=== PATIENT | male | born 1965 | race Caucasian/White ===

== ENCOUNTER → 2018-05-07 08:41 | Outpatient (CLI) | payer OTHER, MEDICARE, SELFPAY ==
--- NOTE | 2018-05-07 09:27 | CT_ITS ---
CT abdomen pelvis w con CLINICAL INDICATION: Abdominal pain, nausea vomiting and diarrhea ITS.REASON: ABD,PAIN HX OF GASTRIC BYPASS ORDERING PHYSICIAN: Mita Joy MD PATIENT AGE: 52 years COMPARISON: None TECHNIQUE: Axial images obtained with sagittal and coronal reformats. All CT scans at the facility use one or more dose reduction, viz: automated exposure control, ma/kV adjustment per patient size (including targeted exams where dose is matched to indication, i.e. head), or iterative reconstruction technique. PROCEDURE: Oral Contrast: Redicat IV Contrast: 75 mL's of Isovue-370. FINDINGS: No acute finding in the lung bases. The liver, spleen, adrenal glands, and kidneys have an unremarkable appearance. There has been a prior cholecystectomy. No ductal dilatation. Prior gastric bypass surgery with gastrojejunostomy. 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 The head of the pancreas is somewhat prominent. Nodularity is noted to the left of the uncinate process of the pancreas possibly related to hypertrophy of the uncinate process versus an underlying lymph node measuring 13 mm. No intestinal obstruction or free air. There are few small lymph nodes in the mesentery's and right lower quadrant. No evidence of appendicitis or diverticulitis. No pelvic mass abnormal fluid collection or focal inflammatory changes the pelvis. No acute bony anomalies. IMPRESSION: 1. No acute abdominal or pelvic findings. 2. Prior gastric bypass with gastrojejunostomy. 3. 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 It is uncertain whether this is congenital or perhaps postsurgical. Correlation with patient's surgical history is needed. There is hyperplasia of the head of the pancreas with some nodularity medial to the uncinate process which could be due to hypertrophy or small lymph node at [address] follow-up with IV and oral contrast to confirm stability. There are few small lymph nodes in the mesentery's which is nonspecific.
[2018-05-07 09:44] LABS: Alanine Aminotransferase 68 U/L (12-78); Albumin Level 3.8 gm/dL (3.4-5.0); Alkaline Phosphatase 94 U/L (46-116); Aspartate Amino Transferase 40 U/L (15-37); Bilirubin,Direct 0.1 mg/dL (0.0-0.2); Bilirubin,Indirect 0.2 mg/dL (0.0-0.9); Bilirubin,Total 0.3 mg/dL (0.2-1.0); Blood Urea Nitrogen 15 mg/dL (7-18); Creatinine,Serum 0.86 mg/dL (0.70-1.30); Estimated Glomerular Filt Rate 93 ml/min (>60); GFR (African American) 112 ML/MIN (>60); Lipase 1953 u/L (73-393); Total Protein,Serum 7.8 gm/dL (6.4-8.2)
== END ==
PROVIDERS: PCP Family Medicine; Visit Provider Family Medicine
DX: R10.13 Epigastric pain (principal); K85.90 Acute pancreatitis without necrosis or infection, unspecified
CPT/HCPCS: 36415; 74177; 80076; 82565; 83690; 84520; Q9967

== ENCOUNTER → 2019-05-13 07:23 | Outpatient (CLI) | payer OTHER, MEDICARE, SELFPAY ==
[2019-05-13 09:12] LABS: Basophils % 0.2 % (0.1-2.0); Eosinophils # 0.4 K/mm3 (0.0-0.4); Eosinophils % 4.8 % (0.1-12.0); Hematocrit 38.3 % (42.0-52.0); Hemoglobin 11.7 g/dL (14.1-18.0); Lymphocytes # 2.1 K/mm3 (0.7-4.5); Lymphocytes % 26.5 % (10-50); Mean Corpuscular HGB Conc 30.4 g/dL (31.8-35.4); Mean Corpuscular Hemoglobin 25.7 pg (27.0-31.2); Mean Corpuscular Volume 84.6 fl (80-94); Mean Platelet Volume 8.2 fl (7.4-10.4); Monocytes # 0.5 K/mm3 (0.1-1.0); Monocytes % 6.5 % (1.7-9.3); Platelet Count 273 K/mm3 (142-424); Red Blood Count 4.53 M/mm3 (4.60-6.20); Red Cell Distribution Width 15.4 % (11.5-17.5)
[2019-05-13 09:27] LABS: Hemoglobin A1C 6.7 % (0.0-7.0)
[2019-05-13 09:37] LABS: Alanine Aminotransferase 46 U/L (12-78); Alkaline Phosphatase 87 U/L (46-116); Anion Gap 11.2 mEq/L (5-15); Aspartate Amino Transferase 24 U/L (15-37); Bilirubin,Direct 0.1 mg/dL (0.0-0.2); Bilirubin,Total 0.1 mg/dL (0.2-1.0); Blood Urea Nitrogen 12 mg/dL (7-18); Calcium 8.4 mg/dL (8.5-10.1); Carbon Dioxide 28 mmol/L (21.0-32.0); Chloride 105 mmol/L (98-107); Chol/HDL Ratio 3.2 (1-3.5); Cholesterol 146 mg/dL (140-200); Creatinine,Serum 0.97 mg/dL (0.70-1.30); Estimated Glomerular Filt Rate 80 ml/min (>60); GFR (African American) 97 ML/MIN (>60); Glucose 159 mg/dL (74-106); HDL Cholesterol 46 mg/dL (27-67); LDL Cholesterol 75 mg/dL (0-130); Potassium 4.2 mmoL/L (3.5-5.1); Prostate Specific Ag Screen 0.7 ng/mL (0.0-4.0); Sodium 140 mmol/L (136-145); Thyroid Stimulating Hormone 2.06 uIU/ml (0.358-3.740); Total Protein,Serum 5.9 gm/dL (6.4-8.2); Triglycerides 126 mg/dL (30-200); VLDL Cholesterol 25 mg/dL (0-40)
[2019-05-14 12:21] LABS: Hepatitis B Surf Ab Quant <3.1 mIU/mL (Immunity>9.9); Testosterone,Total 135 ng/dL (264-916); Vitamin B12 533 pg/mL (232-1245); Vitamin D 25 Hydroxy 35.5 ng/mL (30.0-100.0)
== END ==
PROVIDERS: Visit Provider Family Medicine
DX: R53.83 Other fatigue (principal); E11.9 Type 2 diabetes mellitus without complications; E55.9 Vitamin D deficiency, unspecified; Z79.84 Long term (current) use of oral hypoglycemic drugs; N52.9 Male erectile dysfunction, unspecified; Z11.59 Encounter for screening for other viral diseases
CPT/HCPCS: 80048; 80061; 80076; 82607; 82652; 83036; 84403; 84443; 85025; 86706; G0103

== ENCOUNTER → 2019-08-21 12:44 | Outpatient (CLI) | payer OTHER, MEDICARE, SELFPAY ==
--- NOTE | 2019-08-21 12:50 | XR_ITS ---
PROCEDURE: XR FOOT WT BEARING RT 3V CLINICAL INDICATION: pain COMPARISON: No exams were available for comparison FINDINGS: No fracture or dislocation. No lytic or blastic change. There is normal mineralization. The joint spaces are well-preserved. No erosive changes evident. Other findings:Dystrophic calcifications are seen in the soft tissues lateral to the proximal base of the 5th metatarsal and there is some degenerative spurring of 5th metatarsal. 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 Degenerative dorsal posterior and plantar calcaneal spurring is noted. IMPRESSION: Degenerative findings. No acute bone pathology. Dictated by: Fermin Reynolds 08/21/2019 14:08 Electronically signed by Fermin Reynolds in [place] 08/21/2019 14:08
--- NOTE | 2019-08-21 12:50 | XR_ITS ---
PROCEDURE: XR FOOT WT BEARING LT 3V CLINICAL INDICATION: pain COMPARISON: No exams were available for comparison FINDINGS: No fracture or dislocation. No lytic or blastic change. There is normal mineralization. There is mild degenerative joint disease at the Lisfranc joint and 1st metatarsophalangeal joint. Degenerative spurring of the proximal base of the 5th metatarsal is noted. Degenerative dorsal posterior and plantar calcaneal spurring is noted. Other findings:There is some dystrophic calcification in the soft tissues of the plantar fascia. IMPRESSION: Degenerative findings as described. No acute bone pathology. Dictated by: Fermin Reynolds 08/21/2019 14:14 Electronically signed by Fermin Reynolds in [place] 08/21/2019 14:14
== END ==
PROVIDERS: PCP Family Medicine; Visit Provider Podiatrist
DX: M79.672 Pain in left foot (principal); M79.671 Pain in right foot
CPT/HCPCS: 73630

== ENCOUNTER → 2019-11-28 08:17 | Outpatient (CLI) | payer OTHER, MEDICARE, SELFPAY ==
[2019-11-28 08:57] LABS: Basophils % 0.2 % (0.1-2.0); Eosinophils # 0.2 K/mm3 (0.0-0.4); Eosinophils % 2.6 % (0.1-12.0); Hematocrit 40.3 % (42.0-52.0); Hemoglobin 12.9 g/dL (14.1-18.0); Lymphocytes # 1.9 K/mm3 (0.7-4.5); Lymphocytes % 20.3 % (10-50); Mean Corpuscular Hemoglobin 25.1 pg (27.0-31.2); Mean Corpuscular Volume 78.5 fl (80-94); Mean Platelet Volume 6.6 fl (7.4-10.4); Monocytes # 0.5 K/mm3 (0.1-1.0); Monocytes % 5.1 % (1.7-9.3); Neutrophils # 6.7 K/mm3 (1.8-7.8); Neutrophils % 71.7 % (37.0-80.0); Platelet Count 308 K/mm3 (142-424); Red Blood Count 5.14 M/mm3 (4.60-6.20); Red Cell Distribution Width 16.3 % (11.5-17.5); White Blood Count 9.3 K/mm3 (4.8-10.8)
[2019-11-28 10:01] LABS: Alanine Aminotransferase 66 U/L (12-78); Albumin Level 4.6 g/dl (3.5-5.0); Alkaline Phosphatase 96 U/L (38-126); Anion Gap 13.4 mEq/L (5-15); Aspartate Amino Transferase 54 U/L (17-59); Bilirubin,Indirect 0.3 mg/dL (0.0-0.9); Bilirubin,Total 0.3 mg/dl (0.2-1.3); Bilirubin,Unconjugated 0.3 mg/dL (0.0-1.1); Blood Urea Nitrogen 14 mg/dl (9-20); Calcium 9.7 mg/dl (8.4-10.2); Carbon Dioxide 29 mmol/L (22.0-30.0); Chloride 100 mmol/L (98-107); Chol/HDL Ratio 2.7 (1-3.5); Cholesterol 162 mg/dl (140-200); Estimated Glomerular Filt Rate 100 ml/min (>60); GFR (African American) 121 ML/MIN (>60); Glucose 135 mg/dl (74-100); HDL Cholesterol 59 mg/dl (40-60); Potassium 4.4 mmoL/L (3.5-5.1); Sodium 138 mmol/L (136-145); Total Protein,Serum 7.4 g/dl (6.3-8.2); Triglycerides 123 mg/dl (30-150); VLDL Cholesterol 25 mg/dL (0-40)
[2019-11-28 10:12] LABS: Direct LDL Cholesterol 104.03 mg/dL (100-129)
[2019-11-28 19:31] LABS: Thyroid Stimulating Hormone 2.44 uIU/mL (0.465-4.68)
[2019-11-28 19:41] LABS: Hemoglobin A1C 6.3 % (4.0-6.0)
[2019-11-28 20:11] LABS: Prostate Specific Ag Screen 0.9 ng/ml (0.0-4.0)
[2019-11-29 11:13] LABS: Vitamin B12 762 pg/mL (232-1245); Vitamin D 25 Hydroxy 30.5 ng/mL (30.0-100.0)
[2019-12-03 12:05] LABS: Testosterone, Total, LC/MS 212.2 ng/dL (264.0-916.0)
== END ==
PROVIDERS: Visit Provider Family Medicine
DX: R53.83 Other fatigue (principal); E11.9 Type 2 diabetes mellitus without complications; Z79.84 Long term (current) use of oral hypoglycemic drugs; Z12.5 Encounter for screening for malignant neoplasm of prostate; Z13.220 Encounter for screening for lipoid disorders
CPT/HCPCS: 36415; 80048; 80061; 80076; 82607; 82652; 83036; 84403; 84443; 85025; G0103

== ENCOUNTER → 2021-09-07 07:56 | Outpatient (CLI) | payer OTHER, MEDICARE, SELFPAY ==
[2021-09-07 11:39] LABS: Basophils % 0.3 % (0.1-2.0); Eosinophils # 0.3 K/mm3 (0.0-0.4); Eosinophils % 2.5 % (0.1-12.0); Hematocrit 40.1 % (42.0-52.0); Hemoglobin 12.4 g/dL (14.1-18.0); Lymphocytes # 1.7 K/mm3 (0.7-4.5); Mean Corpuscular Hemoglobin 23.8 pg (27.0-31.2); Mean Corpuscular Volume 76.7 fl (80-94); Mean Platelet Volume 7.6 fl (7.4-10.4); Monocytes # 0.6 K/mm3 (0.1-1.0); Monocytes % 5.7 % (1.7-9.3); Neutrophils # 7.6 K/mm3 (1.8-7.8); Neutrophils % 74.5 % (37.0-80.0); Platelet Count 317 K/mm3 (142-424); Red Blood Count 5.23 M/mm3 (4.60-6.20); Red Cell Distribution Width 16.5 % (11.5-17.5); White Blood Count 10.1 K/mm3 (4.8-10.8)
[2021-09-07 12:06] LABS: Alanine Aminotransferase 64 U/L (12-78); Albumin Level 4.4 g/dl (3.5-5.0); Alkaline Phosphatase 106 U/L (38-126); Anion Gap 12.3 mEq/L (5-15); Aspartate Amino Transferase 52 U/L (17-59); Bilirubin,Direct 0.2 mg/dl (0.0-0.4); Bilirubin,Indirect 0.3 mg/dL (0.0-0.9); Bilirubin,Total 0.5 mg/dl (0.2-1.3); Bilirubin,Unconjugated 0.3 mg/dL (0.0-1.1); Blood Urea Nitrogen 13 mg/dl (9-20); Calcium 9.3 mg/dl (8.4-10.2); Carbon Dioxide 29 mmol/L (22.0-30.0); Chloride 100 mmol/L (98-107); Chol/HDL Ratio 3.6 (1-3.5); Cholesterol 170 mg/dl (140-200); Estimated Glomerular Filt Rate 99 ml/min (>60); GFR (African American) 120 ML/MIN (>60); Glucose 119 mg/dl (74-100); HDL Cholesterol 47 mg/dl (40-60); Potassium 4.3 mmoL/L (3.5-5.1); Sodium 137 mmol/L (136-145); Triglycerides 126 mg/dl (30-150); VLDL Cholesterol 25 mg/dL (0-40)
[2021-09-07 12:17] LABS: Direct LDL Cholesterol 91.36 mg/dL (100-129)
[2021-09-07 12:21] LABS: 25-OH Vitamin D, Total 29.4 ng/mL (30-100)
[2021-09-07 12:36] LABS: Thyroid Stimulating Hormone 1.63 uIU/mL (0.465-4.68)
[2021-09-07 12:55] LABS: Vitamin B12 690 pg/mL (239-931)
[2021-09-07 15:46] LABS: Hemoglobin A1C 6.8 % (4.0-6.0)
[2021-09-09 14:14] LABS: Testosterone,Free 6.6 pg/mL (7.2-24.0)
== END ==
PROVIDERS: PCP Family Medicine; Visit Provider Family Medicine
DX: R07.89 Other chest pain (principal); I10 Essential (primary) hypertension; E11.9 Type 2 diabetes mellitus without complications; Z79.84 Long term (current) use of oral hypoglycemic drugs
CPT/HCPCS: 36415; 78452; 80048; 80061; 80076; 82306; 82607; 83036; 84402; 84443; 85025; 93017; A9502

== ENCOUNTER 2021-11-01 06:02 | Emergency (ER) | payer OTHER, MEDICARE, SELFPAY ==
[2021-11-01 06:05] VITALS: BP 159/71; PULSE 76; RESP 18; TEMP 36.4; O2SAT 95; BMI 40.6
[2021-11-01 06:30] VITALS: BP 162/78; PULSE 71; O2SAT 95
--- NOTE | 2021-11-01 06:33 | XR_ITS ---
FINAL REPORT CLINICAL HISTORY: fall COMPARISON: August 21, 2021 FINDINGS: RIGHT FOOT: Three views of the right foot were obtained. There is no acute fracture or dislocation. There is mild degenerative change. There is chronic calcification adjacent to the proximal 5th metatarsal. IMPRESSION: No acute bony abnormality. Reviewed, Interpreted and Dictated by Greg Cleveland III, MD Transcribed by Naseem Osorio Authenticated by Greg Cleveland III, MD on 11/01/2021 08:42:22 AM [facility]
--- NOTE | 2021-11-01 06:33 | XR_ITS ---
FINAL REPORT CLINICAL HISTORY: fall FINDINGS: Three views of the right ankle were obtained. There is no acute fracture or dislocation. There is mild degenerative change. There is soft tissue swelling. There are calcifications inferior to the medial and lateral malleoli, favor chronic. There are calcaneal spurs. IMPRESSION: Swelling with no acute bony abnormality. Reviewed, Interpreted and Dictated by Greg Cleveland III, MD Transcribed by Naseem Osorio Authenticated by Greg Cleveland III, MD on 11/01/2021 08:42:22 AM [facility]
--- NOTE | 2021-11-01 06:33 | XR_ITS ---
FINAL REPORT CLINICAL HISTORY: fall FINDINGS: Two views of the right tibia-fibula demonstrate no acute fracture or dislocation. There are postoperative changes from knee arthroplasty. There is soft tissue calcification adjacent to the knee. There are calcaneal spurs. IMPRESSION: No acute process. Reviewed, Interpreted and Dictated by Greg Cleveland III, MD Transcribed by Naseem Osorio Authenticated by Greg Cleveland III, MD on 11/01/2021 08:20:06 AM [facility]
--- NOTE | 2021-11-01 06:57 | HMH.EDGENADL ---
ED Disposition Clinical Impression: Sprain of right ankle Qualifiers: Encounter type: initial encounter Involved ligament of ankle: other ligament Qualified Code(s): S93.491A - Sprain of other ligament of right ankle, initial encounter Disposition: Home, Self-Care Condition on Discharge: Good Instructions: DI for Ankle Sprain Additional Instructions: You have been evaluated for right foot and ankle injury after a fall. You have been diagnosed with a sprain. No fracture identified on x-rays. Please follow-up with your primary care doctor in 1 to 2 days for symptom recheck. Wear a supportive shoe or Abdi wrap. Return to the emergency department for any new or worsening symptoms, pain, numbness, other concerns. Referrals: Mita Joy MD [Primary Care Provider] - Time of Disposition: 07:15 - Critical Care Critical Care Time: No Attestation: On 11/01/21, the high probability of a clinically significant, sudden or life threatening deterioration of the following system(s) required my full and direct attention, intervention and personal management. The time I documented below is in addition to time spent performing reported procedures but includes the following listed in this critical care notation. Medical Decision Making - Medical Records Medical records reviewed: Yes: I reviewed the patient's medical records. - Major Inquiry Pt receiving controlled substance: No Vital Signs: 11/01/21 06:05 Temperature 97.6 F Temperature Source Oral Pulse Rate [Right Radial] 76 Respiratory Rate 18 Blood Pressure [Left Arm] 159/71 H Blood Pressure Mean [Left Arm] 100 Blood Pressure Source [Left Arm] Automatic Cuff Blood Pressure Position [Left Arm] Sitting 02 Sat by Pulse Oximetry 95 Oxygen Delivery Method Room Air Orders (Tests/Meds): ORDERS Category Date Time Status XR ankle RT 2V Stat Exams 11/01/21 06:33 Taken XR foot RT min 3V Stat Exams 11/01/21 06:33 Taken XR tibia fibula RT 2V Stat Exams 11/01/21 06:33 Taken - Radiology Data #1 Image(s): Tib/Fib, Ankle, Foot/Toes Image Reviewed: Yes I reviewed the patient's radiology results, Yes I reviewed the patient's radiology image Preliminary Findings: Normal/NAD No fracture of the tibia, fibula, metatarsals. Soft tissue swelling present over the lateral foot and ankle Medical Decision Narrative: In summary this is a 56-year-old male with history of right knee replacement presenting to the emergency department with pain to the right ankle, lower leg. Patient clinically stable on arrival. Vital signs within normal limits. Will obtain x-rays of the right tib-fib, ankle, foot. General Adult HPI - General Chief complaint: Fall Stated complaint: AO 10/31/21 1800 injury right foot,leg,knee Time Seen by Provider: 11/01/21 06:03 Mode of Arrival: Wheelchair Source of Information: Patient Limitations: No Limitations Description of Symptoms (Recalled from ER Triage Doc. by RN): PT STEPPED ON A STOOL YESTERDAY AND FELL BACKWARDS. PT REPORTS PAIN IN RIGHT FOOT. PT REPORTS THAT HE LANDED ON HIS RIGHT SIDE AND HIT HIS RIGHT ELBOW AND HEAD WELL. PT DENIES LOC. PT TOOK MOTRIN YESTERDAY AT 1900 FOR PAIN- BUT NO PAIN MEDS SINCE THAT TIME. - History of Present Illness HPI narrative: 56-year-old male presenting to the emergency department with right lower leg pain, foot pain after a fall. Incident happened yesterday evening around 6 PM. He went to step onto a stool when he felt like his foot and knee gave out. He landed on his foot in an awkward way. Believes that his ankle may have inverted. He had immediate pain on the lateral aspect of the foot. Described as sharp and intense. He fell to the ground, but was able to get up. Does not think he struck his head. No injury to the upper extremities. He has had 3 knee replacements on the right. Has no particular pain in the knee joint. The pain is located on the lateral aspect of the foot and radiates to t
[2021-11-01 07:01] VITALS: BP 167/74; PULSE 69; PULSE 71; RESP 18; O2SAT 95; O2SAT 97
--- NOTE | 2021-11-01 07:04 | PC.NURSE ---
REPORT TO VENITA SANCHES
[2021-11-01 07:31] VITALS: BP 166/73; PULSE 76; PULSE 78; RESP 18; O2SAT 95
--- NOTE | 2021-11-01 08:06 | PC.NURSE ---
ED MD at speaking with patient
[2021-11-01 08:42] VITALS: BP 166/73; PULSE 78; RESP 18; TEMP 36.4; O2SAT 95
== END 2021-11-01 08:42 | disposition home or self-care (01) ==
PROVIDERS: Emergency Provider Emergency Medicine; PCP Family Medicine
DX: S93.491A Sprain of other ligament of right ankle, initial encounter (principal); M25.561 Pain in right knee; I10 Essential (primary) hypertension; E11.9 Type 2 diabetes mellitus without complications; J44.9 Chronic obstructive pulmonary disease, unspecified; Z79.84 Long term (current) use of oral hypoglycemic drugs; Z79.51 Long term (current) use of inhaled steroids; Z99.81 Dependence on supplemental oxygen; Z79.899 Other long term (current) drug therapy; Z88.5 Allergy status to narcotic agent; Z88.6 Allergy status to analgesic agent; Z88.8 Allergy status to other drugs, medicaments and biological substances; Z96.651 Presence of right artificial knee joint; Z87.891 Personal history of nicotine dependence; W08.XXXA Fall from other furniture, initial encounter
CPT/HCPCS: 73590; 73600; 73630; 99284

== ENCOUNTER 2021-11-16 10:57 | Emergency (ER) | payer OTHER, MEDICARE, SELFPAY ==
[2021-11-16 11:15] VITALS: BP 140/89; PULSE 76; RESP 19; TEMP 36.8; O2SAT 98; BMI 41.2
--- NOTE | 2021-11-16 11:49 | HMH.EDUTC ---
[facility] [place] Disposition Clinical Impression: Cellulitis Qualifiers: Site of cellulitis: unspecified site Qualified Code(s): L03.90 - Cellulitis, unspecified Disposition: Home, Self-Care Condition on Discharge: Good Instructions: Cellulitis, Cephalexin Additional Instructions: Continue to wear the boot if you are still having pain and follow up with Podiatry for further evaluation and examination for ankle/foot pain Take medication as prescribed Return if needed Straight to ER if any life threatening symptoms Prescriptions: cephALEXin [cephALEXin 500mg capsule*] 500 mg PO QID 7 Days #28 cap Transmission Status: Pending to [id number] Referrals: Provider,Referral, [Primary Care Provider] - Haley Queen DPM [Staff Physician] - Jacqueline Jo APRN [Nurse Practitioner] - Time of Disposition: 11:55 Medical Decision Making - Major Inquiry Pt receiving controlled substance: No Major was queried for this patient: No Vital Signs: 11/16/21 11:15 Temperature 98.3 F Temperature Source Oral Pulse Rate [Right Brachial] 76 Respiratory Rate 19 Blood Pressure [Right Arm] 140/89 Blood Pressure Mean [Right Arm] 106 Blood Pressure Source [Right Arm] Automatic Cuff Blood Pressure Position [Right Arm] Sitting 02 Sat by Pulse Oximetry 98 Oxygen Delivery Method Room Air Medical Decision Narrative: Discussed repeat xray on right ankle/foot denies new injury and declined states that he will follow up with podiatry Patient reports that he has taken cephalexin in the past without complications or reactions [facility] [place] HPI - General Stated complaint: AO [id number] right ankle and foot pain, home, rash Time Seen by Provider: 11/16/21 11:49 Mode of Arrival: Ambulatory Source of Information: Patient Limitations: No Limitations Description of Symptoms (Recalled from Triage Doc. by RN): PATIENT C/O RIGHT FOOT AND ANKLE PAIN. HE REPORTS HE ROLLED IT AFTER STEPPING OFF OF A STOOL ONE WEEK AGO. HE WAS SEEN HERE AND HAD X RAYS. ALSO C/O RASH TO BILATERAL LEGS X 2 DAYS HEENT Symptoms (Recalled from RN notes): No Resp Symptoms (Recalled from RN notes): No Skin Symptoms (Recalled from RN notes): Yes MS Symptoms (Recalled from RN notes): Yes Functional Status (Recalled from RN notes): WNL - History of Present Illness Provider Complaint: Patient states that he twisted his ankle/foot several weeks ago and was seen in the ED and nothing was broken States that he has been wearing the boot and it is better but still a little sore with certain ways he moves it or puts weight on it States but he has rash on his lower legs that is red like he had when he had cellulitis States that told him this morning he needed to come in and get it checked out Denies any other injury to ankle/foot - Related Data Home Medications Medication Instructions Recorded Confirmed Amlodipine Besylate [Amlodipine 10 mg PO HS 09/16/18 08/22/21 10mg Tab] Montelukast Sodium [Montelukast 10 mg PO DAILY 09/16/18 08/22/21 10mg Tab] clonazePAM [Clonazepam] 1 tab PO HSP PRN 09/16/18 08/22/21 albuterol sulfate 90 mcg/actuation INHALATION 09/02/19 08/22/21 aerosol inhaler aripiprazole 5 mg tablet mg PO 09/02/19 08/22/21 trazodone 100 mg tablet PO 09/02/19 08/22/21 lisinopril 20 mg tablet 20 mg PO DAILY tab 08/22/21 08/22/21 metformin 500 mg tablet,extended ea PO 08/22/21 08/22/21 release 24 hr Previous Rx's Medication Instructions Recorded Benzonatate [Tessalon Perle 100mg 100 mg PO TID #30 cap 09/16/18 Cap] meloxicam 7.5 mg tablet 7.5 mg PO DAILY 30 Days #30 tab 09/02/19 doxycycline hyclate 100 mg tablet 100 mg PO BID 7 Days #14 tab 08/22/21 mupirocin 2 % topical ointment 1 applic TOPICAL BID 30 Days #30 g 08/22/21 cephALEXin [cephALEXin 500mg 500 mg PO QID 7 Days #28 cap 11/16/21 capsule*] Allergies Allergy/AdvReac Type Severity Reaction Status Date / Time morphine Allergy Severe Anaphylaxis Verified 08/22/21 12:03 NSAIDS (Non-Steroidal
[2021-11-16 12:05] VITALS: BP 140/89; PULSE 76; RESP 19; TEMP 36.8; O2SAT 98
== END 2021-11-16 12:08 | disposition home or self-care (01) ==
PROVIDERS: Emergency Provider Nurse Practitioner
DX: L03.115 Cellulitis of right lower limb (principal); I10 Essential (primary) hypertension; E11.9 Type 2 diabetes mellitus without complications; J44.9 Chronic obstructive pulmonary disease, unspecified; Z87.891 Personal history of nicotine dependence
CPT/HCPCS: 99212; G0463